=== PATIENT | female | born 1970 | race Caucasian/White ===

== ENCOUNTER 2023-11-13 11:30 | Day surgery (SDC) | payer OTHER ==
[2023-11-13] MEDS ORDERED: Sodium Chloride 0.9(Preservative Free) 10 ML IJ ONE (11:31)
[2023-11-13] MEDS ORDERED: Decadron 4 MG INJ IV ONE (11:31)
[2023-11-13 12:56] LABS: HCG URINE TEST NEGATIVE (NEGATIVE)
[2023-11-13] MEDS ORDERED: DIPRIVAN 200 MG/20 ML IV ONE (14:13)
[2023-11-13] MEDS ORDERED: Lactated Ringers 1,000 ML IV ONE (14:38)
--- NOTE | 2023-11-13 16:26 | XRAY ---
Indication: Right L4-S1 transforaminal TREV. Intraoperative fluoroscopy provided for 27 seconds. 4 digital spot images submitted for interpretation demonstrates posterior needle tips projecting over the expected right L4 and L5 nerve roots. Small amount of contrast injected for needle tip placement. Correlate with intraoperative findings/report.
--- NOTE | 2023-11-13 16:51 | XRAY ---
27 seconds of fluoroscopy was used in surgery for a right L4-S1 transforaminal TREV.
== END 2023-11-13 14:30 | disposition home or self-care (01) ==
LOC: SDC-PAIN 11:30
PROVIDERS: ATTEND Psychiatry & Neurology Pain Medicine
DX: M54.16 Radiculopathy, lumbar region (principal)
CPT/HCPCS: 64483; 64484; 72100; 77003; 81025; J1100; J2704; Q9966

== ENCOUNTER 2023-12-26 14:37 | Day surgery (SDC) | payer OTHER ==
[2023-12-26] MEDS ORDERED: LIDOCAINE HCL 1% 50 MG/5 ML VL PF IJ ONE (14:38)
[2023-12-26] MEDS ORDERED: Decadron 4 MG INJ IV ONE (14:38)
[2023-12-26 14:48] LABS: HCG URINE TEST NEGATIVE (NEGATIVE)
--- NOTE | 2023-12-26 16:47 | XRAY ---
Indication: Right piriformis injection. Intraoperative fluoroscopy provided for 12 seconds. Single digital spot image demonstrates posterior needle tip projecting over right piriformis. Small amount of contrast injected for needle tip placement. Correlate with intraoperative findings/report.
--- NOTE | 2023-12-26 17:13 | XRAY ---
12 seconds of fluoroscopy was used in surgery for a right piriformis injection.
== END 2023-12-26 16:13 ==
LOC: SDC-PAIN 14:37
PROVIDERS: ATTEND Psychiatry & Neurology Pain Medicine
DX: M79.18 Myalgia, other site (principal)
CPT/HCPCS: 20552; 72170; 77002; 81025; J1100; J2001; Q9966